=== PATIENT | male | born 1980 | race Hispanic/Latino ===

== ENCOUNTER 2020-12-13 13:17 | Emergency (ER) | payer SELFPAY ==
[2020-12-13 14:55] LABS: SARS-COV-2 RT PCR NEGATIVE (NEGATIVE)
--- NOTE | 2020-12-13 14:59 | ER ---
Nurse's Notes [facility] Name: Kojo Lopez Jr Age: 40 yrs Sex: Male : 1980 Arrival Date: 12/13/2020 Time: 13:19 Bed 12 Private MD: Diagnosis: Acute upper respiratory infection, unspecified Presentation: 12/13 13:22 Chief complaint: Patient states: last weekend i felt bad anny sick sore throat hurts tw2 when i take a deep breath and sometimes a runny nose, with green phlegm, denies fever, body aches, and denies loss of smell/taste, denies n/v/d. Coronavirus screen: congestion, runny nose, Client presents with at least one sign or symptom that may indicate coronavirus-19. Standard/surgical mask placed on the client. Provider contacted for isolation considerations. Ebola Screen: Patient denies travel to an Ebola-affected area in the 21 days before illness onset. Initial Sepsis Screen: Does the patient meet any 2 criteria? No. Patient's initial sepsis screen is negative. Does the patient have a suspected source of infection? No. Patient's initial sepsis screen is negative. Risk Assessment: Do you want to hurt yourself or someone else? Patient reports no desire to harm self or others. Onset of symptoms was December 13, 2020. 13:22 Method Of Arrival: Ambulatory tw2 13:22 Acuity: ABHISHEK 4 tw2 13:22 Note "i need the results for work". tw2 Triage Assessment: 13:24 General: Appears in no apparent distress. well groomed, Behavior is calm, cooperative, tw2 appropriate for age. Pain: Denies pain. EENT: Reports nasal congestion nasal discharge that is green. Respiratory: Reports cough that is. Historical: - Allergies: 13:24 No Known Allergies; tw2 - Home Meds: 13:24 None [Active]; tw2 - PMHx: 13:24 None; tw2 - PSHx: 13:24 None; tw2 - Immunization history:: Adult Immunizations. - Social history:: Smoking status: Patient reports the use of cigarette tobacco products, denies chronic smoking, but will smoke occasionally, Patient uses alcohol, occasionally. Screenin:07 Abuse screen: Denies threats or abuse. Nutritional screening: No deficits noted. tw2 Tuberculosis screening: No symptoms or risk factors identified. Fall Risk None identified. Assessment: 14:00 General: Appears comfortable, Behavior is calm, cooperative. Pain: Denies pain. Neuro: aa5 Level of Consciousness is awake, alert, obeys commands, Oriented to person, place, time, situation. Cardiovascular: Patient's skin is warm and dry. Respiratory: Airway is patent Respiratory effort is even, unlabored, Respiratory pattern is regular, symmetrical. GI: No signs and/or symptoms were reported involving the gastrointestinal system. : No signs and/or symptoms were reported regarding the genitourinary system. EENT: Reports sore throat and runny nose . Derm: Skin is pink, warm \\T\\ dry. Musculoskeletal: Range of motion: intact in all extremities. 15:07 Reassessment: Patient appears in no apparent distress at this time. No changes from tw2 previously documented assessment. Patient and/or family updated on plan of care and expected duration. Pain level reassessed. Patient is alert, oriented x 3, equal unlabored respirations, skin warm/dry/pink. Vital Signs: 13:22 BP 152 / 83; Pulse 79; Resp 18; Temp 98.2(TE); Pulse Ox 99% on R/A; Weight 108.86 kg tw2 (R); Height 6 ft. 1 in. (185.42 cm); 13:22 Body Mass Index 31.66 (108.86 kg, 185.42 cm) tw2 ED Course: 13:19 Patient arrived in ED. as 13:24 Triage completed. tw2 13:25 Arm band placed on. tw2 13:43 Kiara Arevalo FNP-C is [facility]. kb 13:43 Prosper Davies MD is Attending Physician. kb 13:47 Bed in low position. Call light in reach. tw2 15:07 No provider procedures requiring assistance completed. Patient did not have IV access tw2 during this emergency room visit. Administered Medications: No medications were administered Outcome: 14:59 Discharge ordered by . kb 15:07 Discharged to home ambulatory. tw2 15:07 Condition: stable 15:07 Discharge instructions given to patient, Instructed on discharge instructions, follow up and referral plans. Demonstrated understanding of instructions, follow-up care. 15:07 Patient left the ED. tw2 Signatures: Kiara Arevalo FNP-C FNP-Ckb Martinez, Amelia as Lindsey Carr, RN RN aa5 Antonina Keenan RN RN tw2 Corrections: (The following items were deleted from the chart) 16:07 13:48 Lindsey Carr RN is Primary Nurse. aa5 aa5
--- NOTE | 2020-12-13 14:59 | EDPHYS ---
Physician Documentation [facility] Name: Kojo Lopez Jr Age: 40 yrs Sex: Male : 1980 Arrival Date: 12/13/2020 Time: 13:19 Bed 12 Private MD: ED Physician Prosper Davies HPI: 12/13 15:15 This 40 yrs old Male presents to ER via Ambulatory with complaints of r/o kb covid. 15:15 The patient or guardian reports cough. Onset: The symptoms/episode began/occurred 1 kb week(s) ago. Severity of symptoms: At their worst the symptoms were very mild, in the emergency department the symptoms have resolved. Modifying factors: The symptoms are alleviated by nothing, the symptoms are aggravated by nothing. Associated signs and symptoms: Pertinent positives: rhinorrhea, sore throat, Pertinent negatives: chest pain, diarrhea, ear ache, fever, nausea, vomiting. The patient has not experienced similar symptoms in the past. The patient has not recently seen a physician. Pt reports he came to get a covid test for work. Reports cough, runny nose and sore throat intermittently for a week. Historical: - Allergies: 13:24 No Known Allergies; tw2 - Home Meds: 13:24 None [Active]; tw2 - PMHx: 13:24 None; tw2 - PSHx: 13:24 None; tw2 - Immunization history:: Adult Immunizations. - Social history:: Smoking status: Patient reports the use of cigarette tobacco products, denies chronic smoking, but will smoke occasionally, Patient uses alcohol, occasionally. ROS: 15:14 Constitutional: Negative for fever, chills, and weight loss, Cardiovascular: Negative kb for chest pain, palpitations, and edema, Abdomen/GI: Negative for abdominal pain, nausea, vomiting, diarrhea, and constipation, MS/Extremity: Negative for injury and deformity, Skin: Negative for injury, rash, and discoloration, Neuro: Negative for headache, weakness, numbness, tingling, and seizure. 15:14 ENT: Positive for rhinorrhea, sore throat. 15:14 Respiratory: Positive for cough. Exam: 15:14 Constitutional: This is a well developed, well nourished patient who is awake, alert, kb and in no acute distress. Head/Face: Normocephalic, atraumatic. Skin: Warm, dry with normal turgor. Normal color with no rashes, no lesions, and no evidence of cellulitis. MS/ Extremity: Pulses equal, no cyanosis. Neurovascular intact. Full, normal range of motion. 15:14 Respiratory: the patient does not display signs of respiratory distress, Respirations: normal. 15:14 Neuro: Orientation: is normal, to person, place, time \T\ situation. Mentation: is normal, able to follow commands, Motor: is normal, moves all fours, Sensation: is normal, Gait: is steady. Vital Signs: 13:22 BP 152 / 83; Pulse 79; Resp 18; Temp 98.2(TE); Pulse Ox 99% on R/A; Weight 108.86 kg tw2 (R); Height 6 ft. 1 in. (185.42 cm); 13:22 Body Mass Index 31.66 (108.86 kg, 185.42 cm) tw2 MDM: 13:43 Patient medically screened. kb 15:02 Data reviewed: vital signs, nurses notes. Data interpreted: Pulse oximetry: on room air kb is 99 %. Interpretation: normal. Counseling: I had a detailed discussion with the patient and/or guardian regarding: the historical points, exam findings, and any diagnostic results supporting the discharge/admit diagnosis, lab results, the need for outpatient follow up, a family practitioner, to return to the emergency department if symptoms worsen or persist or if there are any questions or concerns that arise at home. 12/13 14:55 Order name: COVID-19/FLU A+B; Complete Time: 14:58 EDMS Administered Medications: No medications were administered Disposition: 15:26 Co-signature as Attending Physician, Prosper Davies MD I agree with the assessment and kdr plan of care. Disposition: 12/13/20 14:59 Discharged to Home. Impression: Acute upper respiratory infection, unspecified. - Condition is Stable. - Discharge Instructions: Upper Respiratory Infection, Adult, [id number]. - Medication Reconciliation Form, Thank You Letter, Antibiotic Education, Prescription Opioid Use, Work release form form. - Follow up: Emergency Department; When: As needed; Reason: Worsening of condition. Follow up: Private Physician; When: 2 - 3 days; Reason: Recheck today's complaints, Continuance of care, Re-evaluation by your physician. Signatures: Dispatcher [employer] EDMS MickeyKiara, LEAD SOFTWARE TEST ENGINEER-C LEAD SOFTWARE TEST ENGINEER-Ckb Prosper Davies MD MD kdr Antonina Keenan, RN RN tw2 Corrections: (The following items were deleted from the chart) 14:12 13:45 Influenza Screen (A \T\ B)+BA.LAB.BRZ ordered. EDMS EDMS 14:12 13:45 CORONAVIRUS+MR.LAB.BRZ ordered. EDNV EDMS 15:07 14:59 12/13/2020 14:59 Discharged to Home. Impression: Acute upper respiratory tw2 infection, unspecified. Condition is Stable. Forms are Work release form, Medication Reconciliation Form, Thank You Letter, Antibiotic Education, Prescription Opioid Use. Follow up: Emergency Department; When: As needed; Reason: Worsening of condition. Follow up: Private Physician; When: 2 - 3 days; Reason: Recheck today's complaints, Continuance of care, Re-evaluation by your physician. kb
[2020-12-13 17:23] VITALS: BP 152/83; TEMP 98.2; O2SAT 99
== END 2020-12-13 15:07 | disposition home or self-care (01) ==
LOC: ER 13:17
DX: J06.9 Acute upper respiratory infection, unspecified (principal); Z20.822 Contact with and (suspected) exposure to COVID-19; F17.210 Nicotine dependence, cigarettes, uncomplicated
CPT/HCPCS: 0240U; 99281